=== PATIENT | male | born 1995 | race Caucasian/White ===

== ENCOUNTER 2024-08-30 17:13 | Emergency (ER) | payer SELFPAY ==
--- NOTE | 2024-08-30 18:27 | RAD REPORT ---
EXAM: XR LEFT HAND HISTORY: Pain. Swelling;Pain COMPARISON: None TECHNIQUE: Multiple projections of the left hand submitted. FINDINGS: No fracture, dislocation or radiopaque foreign body.
[2024-08-30] MEDS ORDERED: LIDOCAINE 1% 20 ML MDV ONE (20:26)
[2024-08-30] MEDS ORDERED: TDAP (DIPHTH,PERTUSS(ACELL),TET VAC) 0.5 ML VIAL IMVAC ONE (20:27)
--- NOTE | 2024-08-30 22:01 | ER ---
[facility] Name: Jamel Brennan Age: 29 yrs Sex: Male : 1995 Arrival Date: 08/30/2024 Time: 17:13 Bed 10 Private MD: Diagnosis: Laceration of deep palmar arch of right hand Presentation: 08/30 17:55 Chief complaint: Left hand laceration [place]. hb Coronavirus screen: At this time, the client does not indicate any symptoms associated with coronavirus-19. Ebola Screen: No symptoms or risks identified at this time. Initial Sepsis Screen: Does the patient meet any 2 criteria? No. Patient's initial sepsis screen is negative. Does the patient have a suspected source of infection? No. Patient's initial sepsis screen is negative. Risk Assessment: Do you want to hurt yourself or someone else? Patient reports no desire to harm self or others. Onset of symptoms was August 30, 2024. 17:55 Method Of Arrival: Ambulatory hb 17:55 Acuity: DEMETRIUS 3 hb 22:34 Complicating Factors: There are no complicating factors for this patient. kj2 Historical: - Allergies: 17:56 No Known Allergies; hb - Home Meds: 17:56 None [Active]; hb - PMHx: 17:56 None; hb - PSHx: 17:56 None; hb - Immunization history:: Adult Immunizations up to date. - Infectious Disease History:: Denies. - Social history:: Smoking status: Patient reports use of chewing tobacco. Screenin:21 [facility] ED Fall Risk Assessment (Adult) History of falling in the last 3 months, kj2 including since admission No falls in past 3 months (0 pts) Confusion or Disorientation No (0 pts) Intoxicated or Sedated No (0 pts) Impaired Gait No (0 pts) Mobility Assist Device Used No (0 pt) Altered Elimination No (0 pt) Score/Fall Risk Level 0 - 2 = Low Risk Maintained a safe environment, Hourly rounding (assess needs \T\ fall precautionary measures) done. Abuse screen: Denies threats or abuse. Denies injuries from another. Nutritional screening: No deficits noted. Tuberculosis screening: No symptoms or risk factors identified. Assessment: 20:19 General: Appears in no apparent distress. Behavior is calm, cooperative. Pain: kj2 Complains of pain in left hand Pain currently is 6 out of 10 on a pain scale. Neuro: Level of Consciousness is awake, alert, Oriented to person, place, time, situation. Cardiovascular: Patient's skin is warm and dry. Respiratory: Airway is patent Respiratory effort is unlabored. GI: No signs and/or symptoms were reported involving the gastrointestinal system. : No signs and/or symptoms were reported regarding the genitourinary system. 21:32 Reassessment: Patient appears in no apparent distress at this time. Patient and/or kj2 family updated on plan of care and expected duration. Pain level reassessed. Patient is alert, oriented x 3, equal unlabored respirations, skin warm/dry/pink. 22:30 Reassessment: Patient appears in no apparent distress at this time. Patient and/or kj2 family updated on plan of care and expected duration. Pain level reassessed. Patient is alert, oriented x 3, equal unlabored respirations, skin warm/dry/pink. 22:34 Musculoskeletal: No deficits noted. Injury Description: Laceration is scant bleeding. kj2 Vital Signs: 17:55 BP 168 / 86; Pulse 88; Resp 16; Temp 98.1(O); Pulse Ox 100% on R/A; Weight 145.15 kg; hb Height 5 ft. 7 in. ; Pain 10/10; 20:30 BP 130 / 81; Pulse 72; Resp 18; Pulse Ox 99% on R/A; kj2 21:30 BP 132 / 78; Pulse 76; Resp 20; Pulse Ox 100% on R/A; kj2 22:32 BP 128 / 82; Pulse 74; Resp 20; Temp 98; Pulse Ox 100% ; kj2 17:55 Body Mass Index 50.12 (145.15 kg, 170.18 cm) hb 17:55 Pain Scale: Adult hb ED Course: 17:18 Patient arrived in ED. cj3 17:23 Gilson Garg FNP-C [facility]. dr5 17:23 Raman Correa MD is Attending Physician. dr5 17:56 Triage completed. hb 17:57 Arm band placed on. hb 18:14 Hand Left 3 View XRAY In Process Unspecified. EDMS 20:19 Sharon Mancia, JACKI is Primary Nurse. kj2 20:30 Allergy band placed. Bed in low position. Call light in reach. Provided Education on: kj2 call light. 22:34 No provider procedures requiring assistance completed. Patient did not have IV access kj2 during this emergency room visit. Administered Medications: 20:33 Drug: Boostrix Tdap IM 0.5 ml IM once; as a single dose Route: IM; Site: right deltoid; kj2 22:19 Follow up: Response: No adverse reaction kj2 22:19 Drug: Lidocaine Infiltration (1 %) 20 ml 20 ml Infiltration once; to bedside {Note: kj2 given by provider.} Volume: 20 ml; Route: Infiltration; 22:20 Follow up: Response: No adverse reaction kj2 22:29 Drug: HYDROcodone-acetaminophen PO 5 mg-325 mg 2 tabs PO once Route: PO; kj2 22:30 Follow up: Response: No adverse reaction kj2 Medication: 22:37 VIS not applicable for this client. kj2 Outcome: 22:01 Discharge ordered by . vanessa 22:35 Discharged to home ambulatory, with family, kj2 22:35 Condition: stable 22:35 Discharge instructions given to patient, Instructed on discharge instructions, follow up and referral plans. Demonstrated understanding of instructions, follow-up care, 22:37 Patient left the ED. kj2 Signatures: Dispatcher [employer] EDMS Dahlia Phillips RN RN Sharon Mancia RN RN kj2 Gilson Garg, INSTRUCTOR TRAFFIC SAFETY-C INSTRUCTOR TRAFFIC SAFETY-Cdr5 Aliza Arriola cj3
--- NOTE | 2024-08-30 22:01 | EDPHYS ---
Physician Documentation [facility] Name: Jamel Brennan Age: 29 yrs Sex: Male : 1995 Arrival Date: 08/30/2024 Time: 17:13 Bed 10 Private MD: ED Physician Raman Correa HPI: 08/30 20:02 This 29 yrs old Male presents to ER via Ambulatory with complaints of dr5 Laceration To Hand, Ankle Lac, Foot Lac. 20:02 The patient has a laceration related to: falling from a standing position, occurred [place]. 08/31 00:46 Patient is a 29-year-old male with no possible history coming in with laceration to dr5 left hand after falling on to oysters. Patient denies hitting head or loss of consciousness.. Historical: - Allergies: 08/30 17:56 No Known Allergies; hb - Home Meds: 17:56 None [Active]; hb - PMHx: 17:56 None; hb - PSHx: 17:56 None; hb - Immunization history:: Adult Immunizations up to date. - Infectious Disease History:: Denies. - Social history:: Smoking status: Patient reports use of chewing tobacco. ROS: 08/31 00:47 Constitutional: as per hpi dr5 Exam: 00:47 Constitutional: This is a well developed, well nourished patient who is awake, alert, dr5 and in no acute distress. Head/Face: Normocephalic, atraumatic. Eyes: Pupils equal round and reactive to light, extra-ocular motions intact. Lids and lashes normal. Conjunctiva and sclera are non-icteric and not injected. Cornea within normal limits. Periorbital areas with no swelling, redness, or edema. Neck: Trachea midline, no thyromegaly or masses palpated, and no cervical lymphadenopathy. Supple, full range of motion without nuchal rigidity, or vertebral point tenderness. No Meningismus. Chest/axilla: Normal chest wall appearance and motion. Nontender with no deformity. No lesions are appreciated. Cardiovascular: Regular rate and rhythm with a normal S1 and S2. Normal PMI, no JVD. No pulse deficits. Respiratory: Lungs have equal breath sounds bilaterally, clear to auscultation. No rales, rhonchi or wheezes noted. No increased work of breathing, no retractions or nasal flaring. Back: No spinal tenderness. No costovertebral tenderness. Full range of motion. 00:51 Skin: Laceration noted to left palmar thumb. FROM of fingers. Patient has intact thumb dr5 opposition to all fingers. Sensation intact. Cap refill < 2 Neuro: Awake and alert, GCS 15, oriented to person, place, time, and situation. Cranial nerves II-XII grossly intact. Motor strength 5/5 in all extremities. Sensory grossly intact. Cerebellar exam normal. Normal gait. Vital Signs: 08/30 17:55 BP 168 / 86; Pulse 88; Resp 16; Temp 98.1(O); Pulse Ox 100% on R/A; Weight 145.15 kg; hb Height 5 ft. 7 in. ; Pain 10/10; 20:30 BP 130 / 81; Pulse 72; Resp 18; Pulse Ox 99% on R/A; kj2 21:30 BP 132 / 78; Pulse 76; Resp 20; Pulse Ox 100% on R/A; kj2 22:32 BP 128 / 82; Pulse 74; Resp 20; Temp 98; Pulse Ox 100% ; kj2 17:55 Body Mass Index 50.12 (145.15 kg, 170.18 cm) hb 17:55 Pain Scale: Adult hb Laceration: 08/31 00:51 Wound Repair of 6cm ( 2.4in ) subcutaneous laceration to palmar aspect of proximal dr5 phalanx of right thumb and Right first web space. Irregularly shaped.. Minimal bleeding noted.. Distal neuro/vascular/tendon intact. Anesthesia: Local anesthetic administered with 4 mls of 1% lidocaine. Wound prep: Extensive cleansing with hibiclenz by me, Wound irrigation by ia, Wound explored moderately. Skin closed with 11 4-0 Prolene using simple sutures and sterile technique. Dressed with non-adherent dressing. Patient tolerated well. MDM: 08/30 17:23 Medical Screening Exam initiated dr5 08/31 00:51 Differential diagnosis: superficial laceration, tendon injury, vascular injury. Data dr5 reviewed: vital signs, nurses notes. I considered the following discharge prescriptions or medication management in the emergency department Medications were administered in the Emergency Department. See MAR. Care significantly affected by the following Social Determinants of Health: Poor access to healthcare and/or lack of insurance, Poor access to transportation, Problems related to employment. Counseling: I had a detailed discussion with the patient and/or guardian regarding the historical points, exam findings, and any diagnostic results supporting the discharge/admit diagnosis, the presence of at least one elevated blood pressure reading (>120/80) during this emergency department visit, lab results, radiology results. 08/30 17:58 Order name: Hand Left 3 View XRAY; Complete Time: 18:33 hb 08/30 19:55 Order name: Dressing - Wound; Complete Time: 22:20 dr5 08/30 19:55 Order name: Prolene, Sutures; Complete Time: 22:20 dr5 08/30 19:55 Order name: Setup Suture Tray; Complete Time: 20:33 dr5 Administered Medications: 08/30 20:33 Drug: Boostrix Tdap IM 0.5 ml IM once; as a single dose Route: IM; Site: right deltoid; kj2 22:19 Follow up: Response: No adverse reaction kj2 22:19 Drug: Lidocaine Infiltration (1 %) 20 ml 20 ml Infiltration once; to bedside {Note: kj2 given by provider.} Volume: 20 ml; Route: Infiltration; 22:20 Follow up: Response: No adverse reaction kj2 22:29 Drug: HYDROcodone-acetaminophen PO 5 mg-325 mg 2 tabs PO once Route: PO; kj2 22:30 Follow up: Response: No adverse reaction kj2 Disposition Summary: 08/30/24 22:01 Discharge Ordered Notes: Location: Home dr5 Condition: Stable dr5 Diagnosis - Laceration of deep palmar arch of right hand dr5 Followup: dr5 - With: Emergency Department - When: As needed - Reason: Worsening of condition Followup: dr5 - With: Private Physician - When: 1 - 2 days - Reason: Recheck today's complaints, Continuance of care, Re-evaluation by your physician Discharge Instructions: - Discharge Summary Sheet dr5 - Laceration Care, Adult, [id number] dr5 Forms: - Medication Reconciliation Form dr5 - Antibiotic Education dr5 - Prescription Opioid Use dr5 - Patient Portal Instructions dr5 - Leadership Thank You Letter dr5 Prescriptions: - Cephalexin 500 mg Oral Capsule - take 1 capsule ORAL route every 8 hours for 10 days; 30 capsule; Refills: 0, dr5 Product Selection Permitted - Doxycycline Hyclate 100 mg Oral Tablet - take 1 tablet ORAL route every 12 hours; 20 tablet; Refills: 0, Product dr5 Selection Permitted - Tramadol 50 mg Oral Tablet - take 1 tablet ORAL route every 8 hours as needed; 12 tablet; Refills: 0, dr5 Product Selection Permitted Signatures: Dispatcher [employer] Dahlia Joe, RN RN Sharon Iraheta RN RN kj2 Gilson Garg, [employer] PL[employer] TECHNICIAN-C [employer]ASS PL[employer] TECHNICIAN-Cdr5 Corrections: (The following items were deleted from the chart) 08/31 00:47 00:46 Patient is a 29-year-old male with no possible history coming in with laceration dr5 to . dr5
[2024-08-30] MEDS ORDERED: HYDROCODONE/APAP 5/325 MG TAB ONE (22:23)
[2024-08-30 22:47] VITALS: O2SAT 100
[2024-08-30 22:49] VITALS: BP 128/82; TEMP 98
== END 2024-08-30 22:37 | disposition home or self-care (01) ==
LOC: ER 17:13
DX: S61.411A Laceration without foreign body of right hand, initial encounter (principal)
CPT/HCPCS: 12042; 90715; 96372; 99284; J2003